=== PATIENT | female | born 1950 | race Caucasian/White ===

== ENCOUNTER 2022-04-21 09:39 | Outpatient (CLI) | payer MEDICARE, BC ==
[2022-04-21] MEDS ORDERED: Iopamidol-370 76% 500 ML 1 ML ONE (13:31)
== END 2022-04-21 09:40 | disposition home or self-care (01) ==
LOC: BICCT 09:39
PROVIDERS: ATTEND Urology
DX: R82.81 Pyuria (principal); Z15.09 Genetic susceptibility to other malignant neoplasm; K76.9 Liver disease, unspecified; Z90.710 Acquired absence of both cervix and uterus
CPT/HCPCS: 74178; 82565; Q9967

== ENCOUNTER 2025-04-02 12:07 | Outpatient (CLI) | payer MEDICARE, BC | END 2025-04-02 12:08 | disposition home or self-care (01) | LOC: ULT 12:07 | PROVIDERS: ATTEND Internal Medicine Gastroenterology | DX: D75.89 Other specified diseases of blood and blood-forming organs (principal); Z15.09 Genetic susceptibility to other malignant neoplasm | CPT/HCPCS: 76770 ==